=== PATIENT | male | born 1965 | race Two or more races ===

== ENCOUNTER 2019-07-10 21:19 | Emergency (ER) | payer BC ==
[2019-07-10] MEDS ORDERED: PANTOPRAZOLE SODIUM 40 MG TABLET.DR PO ONE (23:49)
[2019-07-10] MEDS ORDERED: LIDOCAINE 2% VISCOUS SOLN 20 ML UDCUP PO ONE (23:49)
[2019-07-10] MEDS ORDERED: MAG HYDROX/AL HYDROX/SIMETH SUSP 30 ML UDCUP PO ONE (23:49)
[2019-07-10] MEDS ORDERED: METOCLOPRAMIDE HCL ORAL SOLN 10 MG/10 ML UDCUP PO ONE (23:49)
--- NOTE | 2019-07-10 23:51 | ER Document Report ---
ED Medical Screen (RME) - General Chief Complaint: Epigastric Pain Stated Complaint: EPIGASTRIC PAIN Time Seen by Provider: 07/10/19 23:35 Notes: 54-year-old male Mitch presents to the emergency department with acute epigastric pain x3 hours. Patient states he has had epigastric discomfort over the last several months but it is becoming more frequent and got acutely worse just prior to arrival. Patient tried taking [id number] chewable Pepcid and Pepto-Bismol with no relief. No nausea or vomiting, no diarrhea, no fevers Exam: Well-appearing no acute distress, lungs clear to auscultation all suero, does have some epigastric tenderness to palpation. I have greeted and performed a rapid initial assessment of this patient. A comprehensive ED assessment and evaluation of the patient, analysis of test results and completion of medical decision making process will be conducted by an additional ED providers. TRAVEL OUTSIDE OF THE [place] IN LAST 30 DAYS: No Past Medical History - Social History Frequency of alcohol use: None Physical Exam - Vital signs Vitals: Temp Pulse Resp BP 98.1 F 85 20 167/89 H 07/10/19 21:42 07/10/19 21:42 07/10/19 21:42 07/10/19 21:42 Course - Vital Signs Vital signs: Temp Pulse Resp BP Pulse Ox 98.1 F 85 20 167/89 H 07/10/19 21:42 07/10/19 21:42 07/10/19 21:42 07/10/19 21:42
[2019-07-11 00:31] LABS: ABSOLUTE LYMPHOCYTES (AUTO) 1.8 10^3/uL (0.5-4.7); ABSOLUTE MONOCYTES (AUTO) 0.7 10^3/uL (0.1-1.4); ABSOLUTE NEUT (AUTO) 10.6 10^3/uL (1.7-8.2); BASOPHILS % (AUTO) 0.1 % (0-2); EOSINOPHILS % (AUTO) 0.3 % (0-6); HEMATOCRIT 49.5 % (37.9-51.0); LYMPHOCYTES % (AUTO) 13.6 % (13-45); MEAN CORPUSCULAR HEMOGLOBIN 31.9 pg (27.0-33.4); MEAN CORPUSCULAR HGB CONC 34.3 g/dL (32.0-36.0); MEAN CORPUSCULAR VOLUME 93 fl (80-97); MONOCYTES % (AUTO) 5.3 % (3-13); PLATELET COUNT 212 10^3/uL (150-450); RED BLOOD COUNT 5.32 10^6/uL (4.35-5.55); RED CELL DISTRIBUTION WIDTH 12.7 % (11.5-14.0); SEGMENTED NEUTROPHILS % (AUTO) 80.7 % (42-78); TOTAL CELLS COUNTED % (AUTO) 100 %; WHITE BLOOD COUNT 13.1 10^3/uL (4.0-10.5)
[2019-07-11 00:43] LABS: ALKALINE PHOSPHATASE 82 U/L (38-126); ANION GAP 13 (5-19); ASPARTATE AMINO TRANSFERASE 28 U/L (17-59); BILIRUBIN,DIRECT 0.1 mg/dL (0.0-0.4); BILIRUBIN,TOTAL 0.6 mg/dL (0.2-1.3); BLOOD UREA NITROGEN 13 mg/dL (7-20); CALCIUM 9.8 mg/dL (8.4-10.2); CARBON DIOXIDE 28 mmol/L (22-30); CHLORIDE 96 mmol/L (98-107); GLUCOSE 160 mg/dL (75-110); POTASSIUM 3.8 mmol/L (3.6-5.0); TOTAL PROTEIN 8.3 g/dL (6.3-8.2)
--- NOTE | 2019-07-11 02:39 | ER Document Report ---
ED GI/ - General Chief Complaint: Epigastric Pain Stated Complaint: EPIGASTRIC PAIN Time Seen by Provider: 07/10/19 23:35 Primary Care Provider: [facility] [Provider Group] - Follow up tomorrow Notes: Patient is a 54-year-old male that comes to the emergency department for chief complaint of sharp epigastric pain. He states he has been having this intermittently for some time but it was worse today. He denies vomiting, fever, flank pain, lower abdominal pain, bloody stools. He denies any surgeries or diagnosed medical problems. He denies any other complaints. He smokes, denies alcohol, denies recreational drugs. TRAVEL OUTSIDE OF THE [place] IN LAST 30 DAYS: No Past Medical History - General Information source: Patient - Social History Smoking Status: Current Every Day Smoker Frequency of alcohol use: None Lives with: Family Family History: Reviewed & Not Pertinent Patient has suicidal ideation: No Patient has homicidal ideation: No - Medical History Medical History: Negative Review of Systems - Review of Systems Constitutional: No symptoms reported EENT: No symptoms reported Cardiovascular: No symptoms reported Respiratory: No symptoms reported Gastrointestinal: See HPI Genitourinary: No symptoms reported Male Genitourinary: No symptoms reported Musculoskeletal: No symptoms reported Skin: No symptoms reported Hematologic/Lymphatic: No symptoms reported Neurological/Psychological: No symptoms reported Physical Exam - Vital signs Vitals: Temp Pulse Resp BP 98.1 F 85 20 167/89 H 07/10/19 21:42 07/10/19 21:42 07/10/19 21:42 07/10/19 21:42 - Notes Notes: GENERAL: Sleeping but easily aroused. Interacts well, no signs of distress HEAD: Normocephalic, atraumatic. EYES: Pupils equal, round, and reactive to light. Extraocular movements intact. ENT: Oral mucosa moist, tongue midline. Oropharynx unremarkable. Airway patent. LUNGS: Clear to auscultation bilaterally, no wheezes, rales, or rhonchi. No respiratory distress. HEART: Regular rate and rhythm. No murmur ABDOMEN: Minimal epigastric tenderness without guarding. Remaining abdomen is completely benign. No guarding or rigidity. GENITOURINARY: Deferred EXTREMITIES: Moves all 4 extremities spontaneously. No edema, normal radial and dorsalis pedis pulses bilaterally. No cyanosis. BACK: no cervical, thoracic, lumbar midline tenderness. No saddle anesthesia, normal distal neurovascular exam. Moves all extremities in full range of motion. NEUROLOGICAL: Alert and oriented x3. Normal speech. Cranial nerves II through XII grossly intact. PSYCH: Normal affect, normal mood. SKIN: Warm, dry, normal turgor. No rashes or lesions noted. Course - Re-evaluation Re-evalutation: CBC shows mild leukocytosis without bandemia. Chemistry nonspecific. Lipase, LFTs, alk phos, bilirubin unremarkable. Vital signs unremarkable other than some hypertension. Ultrasound shows cholelithiasis with a large stone but no pericholecystic fluid, wall thickening, or obstructive findings. Discussed with patient. He states he has been having these symptoms for some time, he is glad to know the cause, he states he will follow-up with surgical clinic, he states he wants to talk his details over with his family first as well. Provided with symptom management after discussion, discussed strict return precautions. Patient states understanding and agreement. Stable at time of discharge - Vital Signs Vital signs: Temp Pulse Resp BP Pulse Ox 98.1 F 81 18 156/85 H 97 07/11/19 04:25 07/11/19 04:25 07/11/19 04:25 07/11/19 04:25 07/11/19 04:25 - Laboratory Result Diagrams: 07/11/19 00:04 07/11/19 00:04 Laboratory results interpreted by me: 07/11/19 07/11/19 00:04 00:04 WBC 13.1 H Absolute Neuts (auto) 10.6 H Seg Neutrophils % 80.7 H Sodium 136.6 L Chloride 96 L Glucose 160 H Total Protein 8.3 H Discharge - Discharge Clinical Impression: Epigastric pain Cholelithiasis Qualifiers: Cholelithiasis location: gallbladder Cholecystitis presence: without cholecystitis Biliary obstruction: without biliary obstruction Qualified Code(s): K80.20 - Calculus of gallbladder without cholecystitis without obstruction Disposition: HOME, SELF-CARE Additional Instructions: Your ultrasound shows a large gallstone in your gallbladder. This appears to be the cause of your pain. There is no other concerning finding at this time. Please call the surgical clinic tomorrow to establish close follow-up for surgic al management to avoid additional symptoms and problems. I recommend caution with your diet and avoiding greasy, fatty, fried foods. If needed you can take the provided pain and nausea medication for pain, ibuprofen can help as well, however if you develop vomiting, severe pain, fever, or any other concerning or worsening symptoms return to the emergency department. Prescriptions: Hydrocodone/Acetaminophen [[place] 5-325 mg Tablet] 1 - 2 tab PO ASDIR #15 tablet Ondansetron [Zofran Odt 4 mg Tablet] 1 - 2 tab PO Q4H PRN #15 tab.rapdis PRN Reason: For Nausea/Vomiting Forms: Elevated Blood Pressure Referrals: [facility] [Provider Group] - Follow up tomorrow
--- NOTE | 2019-07-11 04:01 | RADIOLOGY REPORT (SQ) ---
CLINICAL HISTORY: epigastric pain COMPARISON: None. TECHNIQUE: US ABDOMEN LIMITED on 07/11/2019 2:38 AM [employer] FINDINGS: Liver is normal in size with mild fatty infiltration. Portal vein is patent. Gallbladder contains a large stone is overall decompressed without wall thickening or pericholecystic fluid. Common bile duct measures 1.6 mm. Right kidney measures 8.8 cm without hydronephrosis. IMPRESSION: Cholelithiasis.
[2019-07-11] MEDS ORDERED: ONDANSETRON ODT 4 MG TAB (6 TAB/ER DISP) PO PRN (04:09)
[2019-07-11] MEDS ORDERED: HYDROCODONE/ACETAMINOPHEN 5-325 MG (6 TAB/ER DISP) PO PRN (04:09)
[2019-07-11 04:26] VITALS: BP 156/85
--- NOTE | 2019-07-11 16:27 | EKG REPORT ---
SEVERITY:- NORMAL ECG - SINUS RHYTHM : Confirmed by: Rain Gatica MD 11-Jul-2019 16:26:37
== END 2019-07-11 04:28 | disposition home or self-care (01) ==
LOC: ER 21:19
DX: K80.20 Calculus of gallbladder without cholecystitis without obstruction (principal); R10.13 Epigastric pain; R10.816 Epigastric abdominal tenderness; D72.829 Elevated white blood cell count, unspecified; I10 Essential (primary) hypertension; F17.200 Nicotine dependence, unspecified, uncomplicated
CPT/HCPCS: 93005; 99284; 36415; 83690; 85025; 80053; 76705; 93010; J3490 ×2